=== PATIENT | male | born 1970 | race African-American/Black ===

== ENCOUNTER 2021-12-03 21:41 | Inpatient (IN) | payer OTHER ==
[~2021-12-03] VITALS: Ht 185.4 cm; Wt 134.3 kg
[2021-12-03] MEDS ORDERED: AMLO10TA80 PO (22:28)
[2021-12-03] MEDS ORDERED: NAPR500T7 PO (22:29)
[2021-12-03] MEDS ORDERED: HYDR25TA PO (22:29)
[2021-12-03] MEDS ORDERED: ASPIRIN 81MG TABLET PO ONE (23:15)
[2021-12-03] MEDS ORDERED: FUROSEMIDE 40MG/4ML VIAL IV ONE (23:15)
[2021-12-03] MEDS ORDERED: NITROGLYCERIN OINT 1GM/INCH UDPKT TD ONE (23:15)
[2021-12-03 23:32] LABS: CHLORIDE 105 mEq/L (98-107)
[2021-12-03 23:46] LABS: BASOPHILS % 0.4 % (0.0-2.0); EOSINOPHILS % 5.9 % (0.0-5.0); HEMOGLOBIN. 14.1 g/dL (14.0-18.0); LYMPHOCYTES % 25.9 % (20.0-50.0); MEAN CORPUSCULAR HEMOGLOBIN 27.1 pg (28.0-32.0); MEAN CORPUSCULAR VOLUME 82.8 fL (80.0-94.0); MEAN PLATELET VOLUME 7.2 fl (7.4-10.4); MONOCYTES % 6.3 % (2.0-8.0); NEUTROPHILS % 61.5 % (40.0-76.0); PLATELET 227 x1000/uL (130-400); RED BLOOD CELL COUNT 5.19 mill/uL (4.7-6.1); RED CELL DISTRIBUTION WIDTH 16.2 % (11.6-14.6)
[2021-12-03 23:50] LABS: D-DIMER 1.19 mg/L FEU (<0.50); PARTIAL THROMBOPLASTIN TIME 30.9 sec (23.4-31.0); PROTHROMBIN TIME 10.5 sec (9.6-11.0)
[2021-12-04] MEDS ORDERED: NITROGLYCERIN OINT 1GM/INCH UDPKT TD NR (01:00)
[2021-12-04] MEDS ORDERED: ASPIRIN 81MG TABLET PO NR (01:00)
[2021-12-04] MEDS ORDERED: POTASSIUM CHLORIDE 20MEQ TABLET SR PO ONE (01:00)
[2021-12-04] MEDS ORDERED: ENOXAPARIN 150MG/ML SYR SUBCUT ONE (01:00)
[2021-12-04] MEDS ORDERED: FUROSEMIDE 40MG/4ML VIAL IV NR (01:00)
[2021-12-04] MEDS ORDERED: AZITHROMYCIN 500MG/250ML 250 ML IV ONE (01:30)
[2021-12-04] MEDS ORDERED: CEFTRIAXONE 1 G PREMIX 50 ML IV ONE (01:30)
[2021-12-04 04:00] VITALS: BP 117/77
== END 2021-12-04 05:40 | disposition left against medical advice (07) | DRG 194 ==
LOC: ER 21:41 → MICUSO 12-04 01:20 → ENRESERV 12-04 02:40 → 8WST 12-04 02:53
PROVIDERS: ADMIT Internal Medicine; ATTEND Internal Medicine
DX: I11.0 Hypertensive heart disease with heart failure (principal); E66.9 Obesity, unspecified; I16.0 Hypertensive urgency; I50.43 Acute on chronic combined systolic (congestive) and diastolic (congestive) heart failure; R06.02 Shortness of breath; E87.6 Hypokalemia; Z20.822 Contact with and (suspected) exposure to COVID-19; R91.8 Other nonspecific abnormal finding of lung field; R06.09 Other forms of dyspnea; R60.0 Localized edema; Z53.29 Procedure and treatment not carried out because of patient's decision for other reasons; Z68.39 Body mass index [BMI] 39.0-39.9, adult; Z71.3 Dietary counseling and surveillance
CPT/HCPCS: 36415; 71045; 80053; 83605; 83880; 84484; 85025; 85379; 87426; 93005; 93970; 99285; J0456; J0696; J1650; J1940

== ENCOUNTER 2021-12-10 19:49 | Emergency (ER) | payer OTHER ==
[~2021-12-10] VITALS: Ht 180.3 cm; Wt 186.2 kg
[~2021-12-10 19:49] MED LIST: AMLO10TA80 PO; HYDR25TA PO; NAPR500T7 PO
[2021-12-10 19:58] VITALS: BP 175/107
[2021-12-10 21:25] LABS: BASOPHILS % 0.9 % (0.0-2.0); EOSINOPHILS % 5.7 % (0.0-5.0); HEMATOCRIT. 45.3 % (42.0-52.0); HEMOGLOBIN. 14.5 g/dL (14.0-18.0); MEAN CORPUSCULAR HEMOGLOBIN 26.8 pg (28.0-32.0); MEAN CORPUSCULAR VOLUME 83.6 fL (80.0-94.0); MEAN PLATELET VOLUME 7.3 fl (7.4-10.4); NEUTROPHILS % 62.4 % (40.0-76.0); PLATELET 219 x1000/uL (130-400); RED BLOOD CELL COUNT 5.42 mill/uL (4.7-6.1); RED CELL DISTRIBUTION WIDTH 16.2 % (11.6-14.6)
[2021-12-10 21:32] LABS: CHLORIDE 106 mEq/L (98-107)
[2021-12-10] MEDS ORDERED: ASPIRIN 325MG EC TABLET PO ONE (22:15)
[2021-12-11] MEDS ORDERED: POTASSIUM CHLORIDE 20MEQ TABLET SR PO NR
== END 2021-12-11 01:08 | disposition home or self-care (01) ==
LOC: ER 19:49
DX: R07.9 Chest pain, unspecified (principal); I10 Essential (primary) hypertension; E66.9 Obesity, unspecified; I11.0 Hypertensive heart disease with heart failure; I50.9 Heart failure, unspecified; Z68.43 Body mass index [BMI] 50.0-59.9, adult
CPT/HCPCS: 36415; 71045; 80053; 83880; 84484; 85025; 93005; 99285